=== PATIENT | female | born 1945 | race Asian ===

== ENCOUNTER → 2016-09-29 | Outpatient (CLI) | payer OTHER, MEDICAID | LOC: BRMIMAGING 12:44 | PROVIDERS: ATTEND Family Medicine | DX: E04.2 Nontoxic multinodular goiter (principal) ==

== ENCOUNTER → 2017-06-07 | Outpatient (CLI) | payer OTHER, MEDICAID | LOC: CIMAGING 14:58 | PROVIDERS: ATTEND Family Medicine | DX: Z12.31 Encounter for screening mammogram for malignant neoplasm of breast (principal) | CPT/HCPCS: G0202 ==

== ENCOUNTER → 2017-08-03 | Outpatient (CLI) | payer OTHER, MEDICAID | LOC: BRMIMAGING 08:33 | PROVIDERS: ATTEND Otolaryngology | DX: E04.2 Nontoxic multinodular goiter (principal) ==

== ENCOUNTER → 2017-11-11 | Outpatient (CLI) | payer OTHER, MEDICAID | LOC: CIMAGING 15:01 | PROVIDERS: ATTEND Family Medicine | DX: I51.7 Cardiomegaly (principal); R09.89 Other specified symptoms and signs involving the circulatory and respiratory systems | CPT/HCPCS: 36415-PO; 71046-PO; 80053-PO; 84439-PO; 84443-PO; 84481-PO; 85025-PO ==

== ENCOUNTER → 2018-09-20 | Outpatient (CLI) | payer OTHER, MEDICAID | LOC: CIMAGING 10:39 | PROVIDERS: ATTEND Family Medicine | DX: Z12.31 Encounter for screening mammogram for malignant neoplasm of breast (principal) ==